=== PATIENT | female | born 1935 | race Caucasian/White ===

== ENCOUNTER → 2016-09-30 | Outpatient (CLI) | payer MEDICARE, OTHER ==
[~2016-09-30] MED LIST: AMIT10TA6 PO; ASCO10006 PO; ATEN100T13 PO; CALC600T12 PO; CITA20TA12 PO; GLUC100016 PO; HCT25T PO; OMEG300C3 PO; OMEP40CA3 PO; PRV20T PO
[2016-09-30 09:33] LABS: BASOPHILS % (AUTO) 1 % (0-2); EOSINOPHILS # (AUTO) 0.1 10^3uL; EOSINOPHILS % (AUTO) 2 % (0-4); LYMPHOCYTES # (AUTO) 2.3 X10^3; MEAN CORPUSCULAR HGB CONC 34.3 g/dL (31.0-37.0); MEAN CORPUSCULAR VOLUME 90 FL (80-100); MEAN PLATELET VOLUME 10.2 FL (6.0-9.5); MONOCYTES # (AUTO) 0.5 X10^3; MONOCYTES % (AUTO) 8 % (3-11); NEUTROPHILS # (AUTO) 2.9 X10^3; NEUTROPHILS % (AUTO) 50 % (51-67); PLATELET COUNT 195 10^3uL (150-450); WHITE BLOOD COUNT 5.83 10^3uL (4.0-11.0)
[2016-09-30 10:03] LABS: ALBUMIN 4.4 g/dL (3.4-5.0); ANION GAP 13.3 MEQ/L (3-15); TOTAL PROTEIN 7.8 g/dL (6.4-8.5)
== END ==
LOC: LAB 09:16
PROVIDERS: ATTEND Internal Medicine
DX: Z00.00 Encounter for general adult medical examination without abnormal findings (principal); E11.9 Type 2 diabetes mellitus without complications; I10 Essential (primary) hypertension; K21.9 Gastro-esophageal reflux disease without esophagitis; E78.4 Other hyperlipidemia
CPT/HCPCS: 36415; 80053; 80061; 82043; 82306; 83036; 84443; 85025

== ENCOUNTER → 2016-10-14 | Outpatient (CLI) | payer MEDICARE, OTHER ==
--- NOTE | 2016-10-14 11:56 | Diagnostic Imaging Report ---
INDICATION: 81-year-old postmenopausal female. FINDINGS: This scan is considered osteopenic according to the World Health Organization guidelines. The lowest T score is -2.1 in the left femoral neck. This indicates an increased risk of fracture. Compared to prior DEXA of 09/09/14, there has been a 2.6% increase in bone mineral density in the lumbar spine and total mean of the hips, although this is not statistically significant. Please refer to the detailed Bone Density report faxed separately from this report. IMPRESSION: 1. Osteopenia with a moderate fracture risk. 2. No statistically significant change in bone mineral density since 09/09/14. Dictated by: Dictated on workstation # [id number]
== END ==
LOC: RAD 10:34
PROVIDERS: ATTEND Internal Medicine
DX: Z78.0 Asymptomatic menopausal state (principal); M85.89 Other specified disorders of bone density and structure, multiple sites
CPT/HCPCS: 77080

== ENCOUNTER 2016-12-27 06:53 | Day surgery (SDC) | payer MEDICARE, OTHER ==
[~2016-12-27] VITALS: Ht 152.4 cm; Wt 64.5 kg
[~2016-12-27 06:53] MED LIST changes: +ACETAMINOPHEN 500 MG TAB (TYLENOL) PO PRN; +SODIUM CHLORIDE FLUSH 3 ML SYR IV PRN; +diphenhydrAMINE 50 MG/ML INJ (BENADRYL) IV PRN
[2016-12-27 06:57] VITALS: BP 157/63
[2016-12-27] MEDS ORDERED: TETRACAINE 0.5% OPHTHALMIC SOLUTION 4 ML BTL ONE (06:57)
[2016-12-27] MEDS ORDERED: BSS OPHTHALMIC IRRIGATION SOLUTION 15 ML BTL ONE (06:57)
[2016-12-27] MEDS ORDERED: POVIDONE-IODINE 5% OPHTHALMIC SOLUTION (BETADINE PREP) 30 ML BTL ONE (06:57)
[2016-12-27] MEDS ORDERED: EPINEPHrine 1MG/ML (1:1000) 1 ML AMPUL (ADRENALIN) ONE (06:57)
[2016-12-27] MEDS ORDERED: VANCOMYCIN 500 MG VIAL ONE (06:57)
[2016-12-27] MEDS ORDERED: PHENYLEPHRINE/KETOROLAC 4 ML VIAL IO ONE (06:57)
--- OUTSIDE RECORDS SUMMARY | 2016-12-27 06:57 | XMS REPORT | Continuity of Care Document ---
Author Author [facility] Organization [facility] Address Unknown Phone Unavailable Care Team Providers Care Manager Financial Systems Name Role Phone Frank Holley MD PP [phone] Insurance Providers Payer Name Policy Number Subscriber Name Relationship Everence [id number] Annabelle Ma 18 Self / Same As Patient Medicare A And B [id number] Annabelle Ma 18 Self / Same As Patient Advance Directives Directive Response Recorded Date Advanced Directives Yes 09/30/13 5:58pm Type Durable Power of Jewelry Drill Operator 09/30/13 5 :58pm Type Living Will 09/30/13 5:58pm Problems Medical Problem Onset Date EXCISION OF SCALP LESION 01/30/13 Systolic hypertension 09/30/13 Allergies, Adverse Reactions, Alerts Allergen Type Severity Reaction Last Updated Sulfa (Sulfonamide Antibiotics) Allergy 09/30/13 Codeine Allergy 09/30/13 Medications Medication Dose Units Route Sig Qty Days Glucosamine Sulfate 2KCL (Glucosamine) 2000 Mg PO DAILY Ascorbic Acid (Vitamin C) 1000 Mg PO DAILY Calcium Carbonate (Calcium) 1200 Mg PO DAILY Hydrochlorothiazide 25 Mg PO DAILY Omeprazole (Prilosec) 40 Mg PO DAILY Pravastatin Sodium 20 Mg PO DAILY Amitriptyline Hcl 30 Mg PO HS Citalopram Hydrobromide (Celexa) 20 Mg PO DAILY Atenolol 100 Mg PO BID Immunizations Name Given Type Date Influenza Vaccine Received if Current 07/27/13 H Response Recorded Date/Time Status not known Unknown Results No Known Relevant Diagnostic Tests, Laboratory Data and/or Discharge Summary. Procedures Procedure Code Date EXC [id number] B9+MICH 1.1-2 36563 ASSAY OF SERUM POTASSIUM 18157 01/31/13 ROUTINE VENIPUNCTURE 28652 01/31/13 TISSUE EXAM BY PATHOLOGIST 11713 J2250 01/31/13 J7120 01/31/13 A4216 01/31/13 OTHER LOCAL DESTRUC SKIN 86.3 01/31/13 COMPREHEN METABOLIC PANEL 21921 06/08/13 LIPID PANEL 41169 06/08/13 MICROALBUMIN QUANTITATIVE 37770 06/08/13 ASSAY THYROID STIM HORMONE 74275 COMPLETE CBC W/AUTO DIFF WBC 13586 ROUTINE VENIPUNCTURE 96841 06/08/13 GLYCOSYLATED HEMOGLOBIN TEST 46160 COMPREHEN METABOLIC PANEL 37879 09/10/13 LACTATE (LD) (LDH) ENZYME 66734 09/10/13 ASSAY OF MAGNESIUM 31578 09/10/13 ASSAY OF PHOSPHORUS 09478 09/10/13 BL SMEAR W/DIFF WBC COUNT 42131 09/10/13 COMPLETE CBC AUTOMATED 09674 09/10/13 ROUTINE VENIPUNCTURE 06123 09/10/13 Encounters Encounter Location Date/Time Departed Emergency Room [facility] 09/30/13 5:58pm
[2016-12-27] MEDS ORDERED: CHONDROITIN/HYALURONATE (DISCOVISC) 1 ML SYR IO ONE (06:58)
[2016-12-27] MEDS ORDERED: LIDOCAINE PF 1% (XYLOCAINE) 30 ML VIAL INJ ONE (06:58)
[2016-12-27] MEDS: LIDOCAINE 3.5% OPHTH GEL (AKTEN) 1 ML BTL OS SCH ×4 (07:35→08:05)
[2016-12-27] MEDS: CATARACT PRE-OP EYE DROPS 0.5ML SYRINGE OS SCH ×3 (07:45→08:05)
[2016-12-27] MEDS: HOME MEDICATION OS SCH ×3 (07:45→08:05)
[2016-12-27] MEDS ORDERED: MIDAZOLAM 2 MG/2 ML (VERSED) VIAL ONE (08:27)
[2016-12-27] MEDS ORDERED: NALBUPHINE 10 MG/ML (NUBAIN) 1 ML AMP ONE (08:28)
[2016-12-27 09:06] VITALS: BP 135/69
== END 2016-12-27 09:37 | disposition home or self-care (01) ==
LOC: ASC 06:53
PROVIDERS: ATTEND Ophthalmology
DX: H26.9 Unspecified cataract (principal); H40.89 Other specified glaucoma; I10 Essential (primary) hypertension; E78.5 Hyperlipidemia, unspecified
CPT/HCPCS: 36415; 66984; 84132; A9270; C9447; J0171; J2001; J2250; J2300; J3370; V2632

== ENCOUNTER 2017-01-17 08:23 | Day surgery (SDC) | payer MEDICARE, OTHER ==
[~2017-01-17] VITALS: Ht 152.4 cm; Wt 66.4 kg
[~2017-01-17 08:23] MED LIST changes: +BSS OPHTHALMIC IRRIGATION SOLUTION 15 ML BTL ONE; +CHONDROITIN/HYALURONATE (DISCOVISC) 1 ML SYR IO ONE; +EPINEPHrine 1MG/ML (1:1000) 1 ML AMPUL (ADRENALIN) ONE; +LIDOCAINE PF 1% (XYLOCAINE) 30 ML VIAL INJ ONE; +PHENYLEPHRINE/KETOROLAC 4 ML VIAL IO ONE; +POVIDONE-IODINE 5% OPHTHALMIC SOLUTION (BETADINE PREP) 30 ML BTL ONE; +TETRACAINE 0.5% OPHTHALMIC SOLUTION 4 ML BTL ONE; +VANCOMYCIN 500 MG VIAL ONE
--- OUTSIDE RECORDS SUMMARY | 2017-01-17 08:27 | XMS REPORT | Continuity of Care Document ---
Author Author [facility] Address Unknown Phone Unavailable Care Team Providers Care Barrel Rifler Broach Name Role Phone BAKARI CAMERON MD PCP [phone] Insurance Providers Payer Name Policy Number Subscriber Name Relationship Medicare A And B [id number] Annabelle Ma 18 Self / Same As Patient Everence [id number] Annabelle Ma 18 Self / Same As Patient Advance Directives Directive Response Recorded Date/Time Advanced Directives Yes 12/27/16 6:57am Type Durable Power of Community Health Advisor 12/27/16 6:57am Type Living Will 12/27/16 6:57am Other Des Ma-son 12/27/16 6:57am Problems Active Problems Medical Problem Onset Date Status Cataract of left eye Unknown Acute EXCISION OF SCALP LESION 01/30/2013 Systolic hypertension 09/30/2013 Acute Medications Current Home Medications Medication Dose Units Route Directions Days/Qty Instructions Start Date Atenolol (Tenormin) 100 Mg 100 Mg ORAL Twice A Day 01/31/13 Citalopram Hydrobromide 20 Mg 20 Mg ORAL Daily 01/31/13 Amitriptyline Hcl 10 Mg 30 Mg ORAL Bedtime 01/31/13 Pravastatin Sodium (Pravachol) 20 Mg 20 Mg ORAL Daily 01/31/13 Omeprazole 40 Mg 40 Mg ORAL Daily 01/31/13 Hydrochlorothiazide 25 Mg 25 Mg ORAL Daily 01/31/13 Calcium Carbonate 600 Mg 1,200 Mg ORAL Daily 01/31/13 Ascorbic Acid 1,000 Mg 1,000 Mg ORAL Daily 01/31/13 Glucosamine Sulfate 2KCL 1,000 Mg 2,000 Mg ORAL Daily 01/31/13 [place]-3 Fatty Acids 300 Mg 300 Mg ORAL Daily 12/24/16 Social History Social History Problem Response Recorded Date/Time Onset Date Status Occupation or Former Occupation RETIRED 12/27/2016 7:11am Query Response Start Date Stop Date Smoking Status Never smoker Hospital Discharge Instructions No hospital discharge instructions. Plan of Care Discharge Date 12/27/16 9:37am Prescriptions See Medication Section Functional Status No functional status results. Allergies, Adverse Reactions, Alerts Allergen Type Severity Reaction Status Last Updated Penicillin Allergy Unknown Active 12/24/16 Sulfa (Sulfonamide Antibiotics) Allergy Unknown Active 12/23/16 Codeine Allergy Unknown Active 12/23/16 Immunizations Name Given Type Status Date Influenza Vaccine Received if Current 07/27/13 Historical Historical Vital Signs Acute Vital Signs Vital Response Date/Time Temperature (Fahrenheit) 97.4 12/27/2016 9:06am Pulse 59 bpm 12/27/2016 9:06am Respirations 18 12/27/2016 9:06am Height 5 ft 0 in Weight 142 lb Body Mass Index 27.0 kg/m^2 Results Laboratory Results Test Name Result Units Flags Reference Collection Date/Time Result Date/ Time Comments Potassium Level 3.7 mmol/L 3.5-5.1 12/27/2016 7:20am 12/27/2016 7:33am Procedures No known history of procedures. Encounters Encounter Location Arrival/Admit Date Discharge/Depart Date Attending Provider Departed [facility] 12/27/16 6:53am 12/27/16 9: 37am DIAN FISCHER MD
[2017-01-17 08:33] VITALS: BP 118/92
[2017-01-17] MEDS: LIDOCAINE 3.5% OPHTH GEL (AKTEN) 1 ML BTL OD SCH ×4 (08:48→09:21)
[2017-01-17] MEDS: CATARACT PRE-OP EYE DROPS 0.5ML SYRINGE OD SCH ×2 (08:58→09:10)
[2017-01-17] MEDS: HOME MEDICATION OD SCH ×3 (08:59→09:21)
[2017-01-17] MEDS ORDERED: MIDAZOLAM 2 MG/2 ML (VERSED) VIAL ONE (09:19)
[2017-01-17] MEDS ORDERED: ALFENTANIL 1,000 MCG/2 ML AMP IV ONE (10:21)
[2017-01-17 10:46] VITALS: BP 137/72
== END 2017-01-17 11:17 | disposition home or self-care (01) ==
LOC: ASC 08:23
PROVIDERS: ATTEND Ophthalmology
DX: H26.9 Unspecified cataract (principal); I10 Essential (primary) hypertension; E78.5 Hyperlipidemia, unspecified; F32.9 Major depressive disorder, single episode, unspecified; Z79.899 Other long term (current) drug therapy; H40.9 Unspecified glaucoma; Z85.72 Personal history of non-Hodgkin lymphomas
CPT/HCPCS: 36415; 66984; 84132; A9270; C9447; J0171; J2001; J2250; J3370; V2632